=== PATIENT | male | born 1940 | race Caucasian/White ===

== ENCOUNTER 2019-06-30 12:52 | Outpatient (CLI) | payer MEDICARE ==
--- NOTE | 2019-06-30 13:17 | RAD ---
XR Chest Pa Lat @ [facility] HISTORY: Dyspnea COMPARISON: 02/28/2009 FINDINGS: The heart size is at upper limits of normal. The aorta is tortuous The lungs are well expan ded without focal areas of consolidation, pneumothorax or pleural effusions. There are degenerative changes in the spine IMPRESSION: No radiographic evidence of acute cardiopulmonary process.
== END 2019-06-30 12:53 | disposition home or self-care (01) ==
LOC: RAD 12:52
PROVIDERS: ATTEND Internal Medicine Pulmonary Disease
DX: R06.00 Dyspnea, unspecified (principal)
CPT/HCPCS: 71046